=== PATIENT | female | born 1965 | race American Indian/Alaskan Native ===

== ENCOUNTER 2016-07-02 14:27 | Emergency (ER) | payer SELFPAY ==
[2016-07-02] MEDS ORDERED: ULTRAM PO ONE (16:54)
--- NOTE | 2016-07-02 16:54 | Emergency Department Report ---
HPI - General Chief Complaint: Back Pain/Injury Time Seen by Provider: 07/02/16 16:52 - HPI HPI: 50-year-old female presents the emergency department with complaint of acute on chronic low back pain for the past 24 hours. The patient says she has a history of these low back pains as she has spent a good amount of time over the past few months help dealing with her ailing grandmother and lifting her for ADLs and most recently she has had to do the same for her father who is now wheelchair bound. She denies any other specific trauma. She denies any problems with bowel or bladder, numbness or paresthesias or any neurological deficits. She tried some BC powder for her discomfort without any relief. No recent travel or sick contacts at home. ED Past Medical Hx - Past Medical History Previous Medical History?: Yes Hx Hypertension: Yes Hx Psychiatric Treatment: Yes (ANXIETY) Additional medical history: Back pain - Surgical History Past Surgical History?: No - Social History Smoking Status: Never Smoker Substance Use Type: Alcohol, Non Opiate Pain, Prescribed - Medications Home Medications: Home Medications Medication Instructions Recorded Confirmed Last Taken Type Atenolol/Chlorthalidone [Tenoretic 1 tab PO QDAY #30 tab 10/29/14 12/19/14 Unknown Rx 50-25] Diazepam Tab [Valium] 5 mg PO Q8HR PRN #10 tablet 09/18/15 Unknown Rx Famotidine [Pepcid] 20 mg PO BID #30 tablet 09/18/15 Unknown Rx Lisinopril/Hydrochlorothiazide 1 tab PO QDAY #30 tablet 09/18/15 Unknown Rx [Zestoretic 10-12.5 mg] amLODIPine [Norvasc] 5 mg PO DAILY #30 tablet 09/18/15 Unknown Rx traMADol [Ultram] 50 mg PO Q6HR PRN #10 tablet 07/02/16 Unknown Rx ED Review of Systems ROS: Stated complaint: SEVERE LWR BACK PAIN Other details as noted in HPI Comment: All other systems reviewed and negative Constitutional: denies: chills, fever Eyes: denies: eye pain, eye discharge, vision change ENT: denies: ear pain, throat pain Respiratory: denies: cough, shortness of breath, wheezing Cardiovascular: denies: chest pain, palpitations Gastrointestinal: denies: abdominal pain, nausea, diarrhea Genitourinary: denies: urgency, dysuria, discharge Musculoskeletal: back pain. denies: arthralgia Skin: denies: rash, lesions Neurological: denies: headache, weakness, paresthesias Physical Exam - Physical Exam Vital Signs: Vital Signs 07/02/16 14:41 Temperature 98.8 F Pulse Rate 100 H Respiratory 20 Rate Blood Pressure 133/92 O2 Sat by Pulse 100 Oximetry Physical Exam: GENERAL: The patient is well-developed well-nourished. HEENT: Normocephalic. Atraumatic. Extraocular motions are intact. Patient has moist mucous membranes. Pupils equal reactive to light bilaterally. NECK: Supple. Trachea is midline. CHEST/LUNGS: Clear to auscultation. There is no respiratory distress noted. HEART/CARDIOVASCULAR: Regular. There is no tachycardia. There is no gallop rub or murmur. ABDOMEN: Abdomen is soft, nontender. Patient has normal bowel sounds. There is no abdominal distention. SKIN: Skin is warm and dry. NEURO: The patient is awake, alert, and oriented. The patient is cooperative. The patient has no focal neurologic deficits. The patient has normal speech and gait. Cranial nerves II through XII grossly intact. DTR patella +2 over 4 bilaterally. MUSCULOSKELETAL: There is no tenderness or deformity. There is no limitation range of motion. There is no evidence of acute injury. Muscle strength 5 out of 5 upper and lower extremities bilaterally including EHL. Has back: No midline thoracic or lumbar tenderness to palpation or deformity. There is reproducible lumbar paraspinal tenderness to palpation with some associated taut musculature. ED Course Vital Signs 07/02/16 14:41 Temperature 98.8 F Pulse Rate 100 H Respiratory 20 Rate Blood Pressure 133/92 O2 Sat by Pulse 100 Oximetry ED Medical Decision Making - Medical Decision Making 50-year-old female presents with acute on chronic low back pain. Patient has a history of back pain and recently has been having to assist her wheelchair- bound father and help him with his ADLs. There is no focal, motor or sensory deficits. Cranial nerves are intact. She has good muscle strength and intact patellar reflexes. There is low suspicion for any emergent back condition such as cauda equina, cord compression syndrome or epidural abscess. Patient was given a Ultram and a shot of Toradol. Urinalysis did not show any significant urinary tract infection and the patient is not . She will be given referral for an orthopedist. She'll return to the ER with any worsening of her symptoms or any acute distress. Since there was no midline pain or known trauma, no radiographic imaging was necessary at this time. If her pain continues the patient may need an MRI to look for disc disease or herniation. - Differential Diagnosis muscle strain, sprain, spasm, disc herniation Critical Care Time: No Critical care attestation.: If time is entered above; I have spent that time in minutes in the direct care of this critically ill patient, excluding procedure time. ED Disposition Clinical Impression: Back pain Qualifiers: Back pain location: low back pain Chronicity: unspecified Back pain laterality : bilateral Sciatica presence: without sciatica Qualified Code(s): M54.5 - Low back pain Disposition: DISCHARGED TO HOME OR SELFCARE Is pt being admited?: No Condition: Stable Instructions: Back Pain (ED) Additional Instructions: Please follow-up with your primary care doctor. I've given you a referral for a local orthopedist, Dr. Cheung, to follow up regarding her back pain. Return to the emergency department with any worsening of your symptoms, problems with bowel or bladder, numbness, or any acute distress. You've been prescribed a medication that is sedating. Therefore this medication cannot be mixed with alcohol, or taken prior to driving, working, or being responsible for children. Prescriptions: traMADol [Ultram] 50 mg PO Q6HR PRN #10 tablet PRN Reason: Pain Referrals: PRIMARY MD PEDRO [Primary Care Provider] - 3-5 Days FARZAD CHEUNG MD [Staff Physician] - 3-5 Days Time of Disposition: 18:18
[2016-07-02 18:06] LABS: Bilirubin,Urine NEG (Negative); Blood,Urine SM (Negative); Ketones,Urine TR mg/dL (Negative); Leukocyte Esterase,Urine NEG (Negative); Nitrite,Urine NEG (Negative); Protein,Urine <15 mg/dL mg/dL (Negative); Urobilinogen,Urine < 2.0 mg/dL (<2.0); WBC,Urine < 1.0 /HPF (0.0-6.0)
[2016-07-02 18:44] VITALS: BP 122/84
== END 2016-07-02 18:30 | disposition home or self-care (01) ==
LOC: ED 14:27
DX: M54.5 Low back pain (principal); G89.29 Other chronic pain; I10 Essential (primary) hypertension; F41.9 Anxiety disorder, unspecified
CPT/HCPCS: 81001; 81025; 99283